=== PATIENT | male | born 1970 | race Caucasian/White ===

== ENCOUNTER 2017-10-17 04:22 | Inpatient (IN) | payer OTHER ==
[~2017-10-17] VITALS: Ht 182.9 cm; Wt 95.3 kg
--- NOTE | ~2017-10-17 | D ---
[facility] [place] [address] DISCHARGE SUMMARY Name: MARGARITA SOTELO Room #: 448-P [facility] IN M.R.#: [id number] Admission: 10/17/17 Attend Phys: Aleks Christine MD Discharge: 10/17/17 Date of : 66 Report #: [id number] THIS REPORT FOR: //name// CC: DANILO physician/PCP Aleks Christine DATE OF SERVICE: 10/17/2017 The patient left AMA on 10/17/2017 HISTORY OF PRESENT ILLNESS: The patient is 47-year-old man with history of polysubstance abuse, who was admitted to the hospital for acute pancreatitis, which is recurrent problem for him. Please refer to admission H and P for details. Before I made rounds this morning, I was notified that the patient left AMA last night. FINAL DIAGNOSIS: Acute pancreatitis, recurrent problem. <ELECTRONICALLY SIGNED> By: Aleks Christine MD 10/22/17 1906 1219 1228 Aleks Christine MD /nt
[2017-10-17 04:31] VITALS: BP 143/80
[2017-10-17 04:51] LABS: ABSOLUTE NEUTROPHILS 4.6 thou/uL (1.4-8.2); EOSINOPHILS 2.8 % (0.0-3.0); HEMATOCRIT 37.9 % (42.0-52.0); HEMOGLOBIN 13.3 gm/dL (14.0-18.0); LYMPHOCYTES 42.8 % (24.0-44.0); MCH 32.1 pg (26.0-34.0); MCHC 35.2 g/dL (28.0-37.0); MCV 91.1 fL (80.0-100.0); PLATELET COUNT 355 thou/uL (150-400); POLYS 42.4 % (36.0-66.0); RBC 4.16 mil/uL (4.50-6.00); RDW 14.1 % (10.5-14.5); WBC 10.8 thou/uL (4.0-11.0)
[2017-10-17 04:56] LABS: ANION GAP 13 mmol/L (7-16); BUN 16 mg/dL (7-18); CALCIUM 8.4 mg/dL (8.5-10.1); CHLORIDE 105 mmol/L (98-107); CO2 24 mmol/L (21-32); CREATININE 0.8 mg/dL (0.7-1.3); POTASSIUM 3.6 mmol/L (3.5-5.1); SODIUM 142 mmol/L (136-145)
[2017-10-17 05:03] LABS: ALBUMIN 3.8 g/dL (3.4-5.0); DIRECT BILIRUBIN < 0.1 mg/dL (<0.1-0.3); LIPASE 1013 U/L (73-393); MAGNESIUM 1.9 mg/dL (1.8-2.4); SGOT 75 U/L (15-37); SGPT 52 U/L (30-65); TOTAL BILIRUBIN 0.5 mg/dL (<0.1-1.0); TOTAL PROTEIN 7.5 g/dL (6.4-8.2)
[2017-10-17 05:08] LABS: GLUCOSE 97 mg/dL (74-106)
[2017-10-17 05:57] LABS: URINE BILIRUBIN NEGATIVE (Negative); URINE BLOOD NEGATIVE (Negative); URINE CLARITY CLEAR; URINE COLOR YELLOW; URINE GLUCOSE-RANDOM* NEGATIVE (Negative); URINE KETONES NEGATIVE (Negative); URINE LEUKOCYTES-REFLEX NEGATIVE (Negative); URINE NITRITE-REFLEX NEGATIVE (Negative); URINE PROTEIN (DIPSTICK) NEGATIVE (Negative); URINE UROBILINOGEN 0.2 E.U./dl (0.2-1.0)
[2017-10-17 06:05] LABS: AMP/METHAMP POSITIVE (Negative); BARBITURATES Negative (Negative); BENZODIAZEPINES Negative (Negative); COCAINE Negative (Negative); METHADONE Negative (Negative); OPIATES POSITIVE (Negative); PCP Negative (Negative)
[2017-10-17 07:45] VITALS: BP 135/76
[2017-10-17 08:53] VITALS: BP 126/79
[2017-10-17 16:07] VITALS: BP 129/76
== END 2017-10-17 19:04 | disposition left against medical advice (07) | DRG 440 ==
LOC: ER 04:22 → EROBS 06:10 → 4S 07:46
PROVIDERS: Emergency Medicine
DX: K85.90 Acute pancreatitis without necrosis or infection, unspecified (principal); F17.210 Nicotine dependence, cigarettes, uncomplicated; E11.9 Type 2 diabetes mellitus without complications; I10 Essential (primary) hypertension; R26.9 Unspecified abnormalities of gait and mobility; K52.9 Noninfective gastroenteritis and colitis, unspecified; F19.10 Other psychoactive substance abuse, uncomplicated; Z93.3 Colostomy status; Z85.038 Personal history of other malignant neoplasm of large intestine; Z90.49 Acquired absence of other specified parts of digestive tract; Z89.512 Acquired absence of left leg below knee; Z80.9 Family history of malignant neoplasm, unspecified; F11.10 Opioid abuse, uncomplicated; F15.10 Other stimulant abuse, uncomplicated; F12.10 Cannabis abuse, uncomplicated
CPT/HCPCS: 10195

== ENCOUNTER 2019-07-12 17:03 | Inpatient (IN) | payer OTHER ==
[~2019-07-12] VITALS: Ht 182.9 cm; Wt 78.0 kg
[2019-07-12 17:07] VITALS: BP 137/84
[2019-07-12 18:44] LABS: ABSOLUTE NEUTROPHILS 3.8 thou/uL (1.4-8.2); EOSINOPHILS 1.9 % (0.0-3.0); HEMATOCRIT 40.1 % (42.0-52.0); HEMOGLOBIN 13.8 gm/dL (14.0-18.0); LYMPHOCYTES 22.8 % (24.0-44.0); MCHC 34.3 g/dL (28.0-37.0); MONOCYTES 11.4 % (1.0-8.0); PLATELET COUNT 298 thou/uL (150-400); POLYS 62.9 % (36.0-66.0); RBC 4.17 mil/uL (4.50-6.00); RDW 12.7 % (10.5-14.5); WBC 6.1 thou/uL (4.0-11.0)
[2019-07-12 18:53] LABS: URINE BILIRUBIN NEGATIVE (Negative); URINE BLOOD NEGATIVE (Negative); URINE CLARITY CLEAR; URINE COLOR YELLOW; URINE GLUCOSE-RANDOM* 3+ (Negative); URINE KETONES NEGATIVE (Negative); URINE LEUKOCYTES-REFLEX NEGATIVE (Negative); URINE NITRITE-REFLEX NEGATIVE (Negative); URINE PROTEIN (DIPSTICK) NEGATIVE (Negative); URINE UROBILINOGEN 0.2 E.U./dl (0.2-1.0)
[2019-07-12 18:59] LABS: ALBUMIN 3.3 g/dL (3.4-5.0); CALCIUM 8.9 mg/dL (8.5-10.1); POTASSIUM 4.4 mmol/L (3.5-5.1); TOTAL BILIRUBIN 0.4 mg/dL (<0.1-1.0); TOTAL PROTEIN 7.6 g/dL (6.4-8.2)
[2019-07-12 19:14] LABS: AMP/METHAMP Negative (Negative); BARBITURATES Negative (Negative); BENZODIAZEPINES Negative (Negative); COCAINE Negative (Negative); METHADONE Negative (Negative); OPIATES Negative (Negative); PCP Negative (Negative)
[2019-07-12] MEDS ORDERED: METFORMIN HCL500 M3 PO (22:06)
[2019-07-12] MEDS ORDERED: GLIPIZIDE 10 MG10 MG PO (22:07)
[2019-07-12 22:08] VITALS: BP 123/73
--- NOTE | 2019-07-12 22:10 | NUR ---
PT HAD AN ALLERGIC REACTION TO THE CT CONTRAST, GIVEN EPI, SOLU-MEDROL, PEPCID, AND 1L OF FLUID.
--- NOTE | 2019-07-12 22:11 | NUR ---
CALLED MICHAEL, ROOMMATE, AT PT'S REQUEST
[2019-07-12 23:19] VITALS: BP 121/79
--- NOTE | 2019-07-13 00:58 | NUR ---
PT ARRIVED ON UNIT FROM ED AT 2250. ADMITTED WITH HYPERGLYCEMIA AND ABDOMINAL PAIN. COMES FROM HOME. VOIDING PER URINAL. LEFT FOOT AMPUTEE--AMBULATES INDEPENDENTLY WITH CRUTCHES. MORPHINE PROVIDING PAIN RELIEF. DENIES NAUSEA. RESTING COMFORTABLY. NO NEEDS VOICED. CALL LIGHT WITHIN REACH. WILL CONTINUE TO PROVIDE FREQUENT OBSERVATION.
[2019-07-13 03:55] VITALS: BP 112/67
[2019-07-13 04:49] LABS: MCH 32.6 pg (26.0-34.0); MCHC 34.1 g/dL (28.0-37.0); MCV 95.5 fL (80.0-100.0); RBC 4.61 mil/uL (4.50-6.00); RDW 12.5 % (10.5-14.5)
[2019-07-13 05:09] LABS: CALCIUM 9.4 mg/dL (8.5-10.1); CREATININE 0.8 mg/dL (0.7-1.3); POTASSIUM 4.4 mmol/L (3.5-5.1)
[2019-07-13 08:15] VITALS: BP 110/72
[2019-07-13 11:31] VITALS: BP 118/67
[2019-07-13 16:00] VITALS: BP 112/76
--- NOTE | 2019-07-13 16:28 | NUR ---
RECEIVED PT'S CARE AROUND 0730; PT. ON BED; RESTING WITH EYES CLOSED; CHEST RISING; DURING ASSESSMENT PT. AOX4; C/O PAIN OVER R. SIDE ABDOMEN; 04/12; PRN PAIN MEDICATION GIVEN WITH AM MEDICATIONS; EDUCATED ABOUT CALLING BEFORE STANDING UP; ST. UNDERSTANDING; REFUSED BED ALARM; COMMODE AT THE BED SIDE DUE TO AM MEDICATION GIVEN; INSULIN REPLACED; THROUGH THE DAY MONITOR SHOWS SR; NO BM UNTIL 1633; PT. ST. ABLE TO PASS FLATUS; ASSESSMENT CHARGED; FOLLOWING POC; WILL PASS ON REPORT;
[2019-07-13 20:13] VITALS: BP 108/81
[2019-07-14 04:07] LABS: GLYCOHEMOGLOBIN (HGB A1C) 12.8 % (4.8-5.6)
--- NOTE | 2019-07-14 04:46 | NUR ---
ASSUMED PT CARE AROUND 1900. A&OX4. C/O RUQ ABDOMINAL PAIN. NO C/O N/V. MORPHINE GIVEN FOR PAIN, WITH TEMPORARILY RELIEF. PT SLEPT MOST OF THE NIGHT. RESP EVEN AND UNLABORED. IVF INFUSING ORDERED. GOOD URINE OUTPUT VIA URINAL. PT REFUSES BED ALARM. PT UNDERSTANDS HE SHOULD NOT GET OUT OF BED WITHOUT ASSISTANCE. VSS. NPO SINCE MIDNIGHT. PROGRESSING SLOWLY TOWARD POC GOALS. WILL CONTINUE TO MONITOR FURTHER.
[2019-07-14 04:58] LABS: HEMATOCRIT 36.5 % (42.0-52.0); MCH 32.2 pg (26.0-34.0); MCHC 33.1 g/dL (28.0-37.0); MCV 97.1 fL (80.0-100.0); RBC 3.76 mil/uL (4.50-6.00); RDW 12.6 % (10.5-14.5); WBC 18.4 thou/uL (4.0-11.0)
[2019-07-14 05:00] VITALS: BP 110/73
[2019-07-14 05:01] LABS: HEMOGLOBIN 12.1 gm/dL (14.0-18.0)
[2019-07-14 05:13] LABS: ALBUMIN 2.7 g/dL (3.4-5.0); CALCIUM 8.7 mg/dL (8.5-10.1); CREATININE 0.9 mg/dL (0.7-1.3); POTASSIUM 4.4 mmol/L (3.5-5.1); TOTAL BILIRUBIN 0.4 mg/dL (<0.1-1.0); TOTAL PROTEIN 6.3 g/dL (6.4-8.2)
[2019-07-14 07:48] VITALS: BP 112/68
[2019-07-14 12:58] VITALS: BP 118/66
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
[2019-07-14 16:00] VITALS: BP 120/68
--- NOTE | 2019-07-14 17:11 | NUR ---
pt is A&OX3, PT has done EGD today, resluts show a diffused gastritis, no ulcer, pt starts eat lunch, pt is tolerate, pt does not have n/v , pt's bs has and abd pain have improved, pt's vs are stable at this time.
[2019-07-14 20:18] VITALS: BP 134/74
[2019-07-15 03:51] VITALS: BP 141/76
--- NOTE | 2019-07-15 05:35 | NUR ---
ASSUMED CARE AT 1900. PT INITIALLY VERY FRUSTRATED, STATED HE WANTED TO LEAVE AMA BECAUSE HE WASN'T GETTING TO EAT ENOUGHT; BLOOD SUGAR CHECK WAS 110, GAVE PT A TURKEY SANDWICH BOX. PT GRADUALLY CALMED DOWN, APOLOGIZED FOR OVER-REACTING. RECHECK OF BLOOD SUGAR AT 2129 WAS 174, TREATED WITH 3 UNITS LISPRO WELL GIVING ANOTHER SNACK OF ADILENE CRACKERS/PEANUT BUTTER. PT ASKED ABOUT WHAT REGIMINE HE WOULD GO HOME ON, SPOKE ABOUT LIKELY OPTIONS BUT EXPLAINED ENDOCRINOLOGY WOULD BE MAKING THE FINAL DECISIONS. PT ASKED TO USE BEDSIDE COMMODE TO HAVE BM; WANTED TO GET UP ON HIS OWN, BUT EDUCATED PT ABOUT FALL RISKS AND HE AGREED TO LET STAFF ASSIST HIM. STOOL SAMPLE SENT TO LAB. IVF INFUSING OVERNIGHT; PT HAD LARGE AMOUNT OF URINE OUTPUT. NO OTHER CONCERNS, WILL CONTINUE TO MONITOR.
[2019-07-15 08:08] VITALS: BP 142/73
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
[2019-07-15 09:07] LABS: HAV IgM AB (ANTI-HAV IgM) Negative (Negative); HEPATITIS B SURFACE AG Negative (Negative); HEPATITIS C VIRUS AB >11.0 (0.0-0.9)
[2019-07-15 10:32] LABS: ABSOLUTE NEUTROPHILS 17.3 thou/uL (1.4-8.2); BASOPHILS 0.1 % (0.0-2.0); HEMATOCRIT 38.8 % (42.0-52.0); HEMOGLOBIN 12.5 gm/dL (14.0-18.0); LYMPHOCYTES 4.6 % (24.0-44.0); MCH 31.8 pg (26.0-34.0); MCHC 32.3 g/dL (28.0-37.0); MCV 98.4 fL (80.0-100.0); MONOCYTES 1.8 % (1.0-8.0); PLATELET COUNT 316 thou/uL (150-400); POLYS 93.5 % (36.0-66.0); RBC 3.95 mil/uL (4.50-6.00); RDW 12.9 % (10.5-14.5); WBC 18.5 thou/uL (4.0-11.0)
[2019-07-15 10:47] LABS: ALBUMIN 2.8 g/dL (3.4-5.0); CALCIUM 8.6 mg/dL (8.5-10.1); POTASSIUM 4.1 mmol/L (3.5-5.1); TOTAL BILIRUBIN 0.4 mg/dL (<0.1-1.0); TOTAL PROTEIN 6.6 g/dL (6.4-8.2)
[2019-07-15 11:17] VITALS: BP 137/67
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
--- NOTE | 2019-07-15 14:25 | NUR ---
SW reviewed chart and spoke with nursing and attending physician. Pt is progressing towards goals for discharge. Discharge home is anticipated for tomorrow. [employer] met with pt to assist with completion of assistance forms for DM meds/supplies. [employer] to meet with pt today to complete Medicaid application. SAUL contacted [employer] and [employer] to find out cost of knee scooter. [employer] does not carry knee scooters. Awaiting input from Dev. SAUL is following to assist as needed with discharge planning.
[2019-07-15 15:57] VITALS: BP 130/71
--- NOTE | 2019-07-15 17:06 | PATH ---
[facility] [address] [place] [address] PATHOLOGY RPT PROCEDURE Name: MARGARITA CARRILLO Room #: 362-P ADM IN M.R.#: [id number] Admission: 07/12/19 Date of : 66 Discharge: Report #: [id number] Path Case #: [id number] [facility] Accession Number: [id number] . 01 Material submitted: . stomach - BX GASTRITIS . 01 Clinical history: . Pre-OP DX: Nausea, vomiting, abdominal pain Post-OP DX: Gastritis . 02 Diagnosis: Gastric mucosa, gastritis, rule out H. pylori, endoscopic biopsy: - Moderate reactive gastropathy. - Negative for intestinal metaplasia or atrophy. - Negative for Helicobacter pylori (properly controlled immunohistochemical stain performed). (IUV:pit; 07/15/2019) QTP 07/15/2019 1153 Local . 02 Electronically signed: . Sofie Womack MD, Pathologist NPI- [id number] . 01 Gross description: . Received in formalin labeled "Margarita Carrillo, BX gastritis, rule out H. pylori," are 3 segments of perkins soft tissue measuring 1.1 x 1.0 x 0.3 cm in aggregate dimensions and ranging from 0.4 to 0.5 cm in maximum dimension. The specimen is submitted entirely in cassette A1. (TSD; 07/14/2019) TOB/TOB 07/14/2019 2208 Local . 02 Pathologist provided ICD-10: K31.9 . 02 CPT . 410213, [id number] Specimen Comment: A courtesy copy of this report has been sent to [phone] Specimen Comment: [phone] Specimen Comment: Report sent to / DR FUNEZ Performed at: 01 [facility] [address] [id number] MD Alhaji Mccallum MD Phone: [phone] Performed at: 02 [facility] [address] [place] [address] PATHOLOGY RPT PROCEDURE Name: MARGARITA CARRILLO Room #: 362-P ADM IN M.R.#: [id number] Admission: 07/12/19 Date of : 66 Discharge: Report #: [id number] Path Case #: [id number] [address] [place] [id number] MD Sofie Womack MD Phone: [phone]
--- NOTE | 2019-07-15 18:07 | NUR ---
ASSUMED CARE OF PT AT APPROX 0700. PT IS ALERT AND ORIENTED X4. MONITORED ON TELE AND ABLE TO MAINTAIN 02 SAT >90 ON RA. COMPLAINS OF ABD PAIN THAT IS PARTIALLY RESOLVED WITH PRN PAIN MEDICATIONS. ASSESSMENT CHARTED. EDUCATED PT ON USING INSULIN AND ALLOWED HIM TO STICK HIMSELF. ALSO SHOWED HIM A BOTTLE AND TOLD HIM HE KEEPS RECIEVING HE SHOULD BECOME MORE AND MORE INTERACTIVE WITH INSULIN ADMINISTRATION SO THAT HE IS FAMILIAR AT [facility]. PT WAS VERY THANKFUL AND IN AGREEMENT. PT DENIES ANY FURTHER CONCERNS AT THIS TIME. NAD NOTED DURING SHIFT. WILL CONTINUE TO MONITOR.
[2019-07-15 19:02] VITALS: BP 133/73
[2019-07-16 03:54] VITALS: BP 137/71
--- NOTE | 2019-07-16 04:09 | NUR ---
Pt. slept well during the night. Medicated for pain with some relief. Refused bed alarm and gets up using crutches. Calls appropriately if he needs assistance. Making progress towards care plan goals.
[2019-07-16 07:55] VITALS: BP 157/74
[2019-07-16 11:48] VITALS: BP 135/72
[2019-07-16 12:20] VITALS: BP 135/72
[2019-07-16] MEDS ORDERED: HYOSCYAMINE0.125 M1 SUBLING (12:23)
[2019-07-16] MEDS ORDERED: MIRALAX17 GM PO (12:23)
[2019-07-16] MEDS ORDERED: LANTUS100 UNIT/M SUBQ (12:26)
[2019-07-16] MEDS ORDERED: CARAFATE 1 GM TA1 G1 PO (12:26)
[2019-07-16] MEDS ORDERED: PROTONIX40 M1 PO (12:26)
[2019-07-16] MEDS ORDERED: HUMALOG100 UNIT/1 SUBQ (12:27)
[2019-07-16] MEDS ORDERED: NORCO 5-325 TA1 EAC1 PO (12:30)
--- NOTE | 2019-07-16 16:26 | NUR ---
DISCHARGE NOTE: SAUL reviewed chart and spoke with nursing and attending physician. Pt is medically stable for discharge home today. [employer] oconnell met with pt to assist with prescription assistance for diabetes meds/supplies. Pt completed forms. Case mgmt to vouch for meds. Case Mgmt Director approved cost of meds. Pt will need to rock picker one med tomorrow at the Outpatient pharmacy. SW met with pt at bedside to provide update. Pt was very unhappy that all meds are not available today to rock picker. SW explained that it had to be ordered. RALF oconnell and attending physician discussed pt's insulin dose for today. SW updated nursing. Pt has transportation home. SW is following to assist as needed with discharge planning.
[2019-07-16 16:41] VITALS: BP 135/72
--- NOTE | 2019-07-16 16:55 | NUR ---
ASSUMED CARE OF AT 0700. PT ALERT AND ORIENTED IN NO ACUTE DISTRESS. OCCASIONAL ABDOMINAL PAIN. FRUSTRATED THAT NOVALIN 70/30 NOT AVAILABLE IN OUTPAWTIENT PHARM UNTIL TOMORROW, BUT IS AGREEABLE FOR D/C AND TO PICK IT UP TOMORROW MORNING. PHYSICIAN AND RN DISCUSSED WITH PATIENT THAT HE IS COVERED WITH LONG ACTING INSULIN ADMINISTERED TODAY. ALL OTHER MEDS AVAILABLE IN OUTPATIENT PHARM. BLOOD SUGAR BEFORE D/C IS 94. WAITING ON TRANSPORT.
== END 2019-07-16 17:13 | disposition home or self-care (01) | DRG 392 ==
LOC: ER 17:03 → EROBS 21:56 → 3W 21:56 → ENTRNSPT 07-16 16:53 → 3W 07-16 17:13
PROVIDERS: Internal Medicine; Internal Medicine Gastroenterology; Nurse Practitioner Family; Physician Assistant; ADMIT Hospitalist
PROC: 0DB68ZX Excision of Stomach, Via Natural or Artificial Opening Endoscopic, Diagnostic (ICD-10-PCS; principal; 2019-07-14)
DX: K29.70 Gastritis, unspecified, without bleeding (principal); R57.9 Shock, unspecified; E87.1 Hypo-osmolality and hyponatremia; E46 Unspecified protein-calorie malnutrition; T50.8X5A Adverse effect of diagnostic agents, initial encounter; E11.65 Type 2 diabetes mellitus with hyperglycemia; K21.9 Gastro-esophageal reflux disease without esophagitis; F17.210 Nicotine dependence, cigarettes, uncomplicated; K59.00 Constipation, unspecified; F19.10 Other psychoactive substance abuse, uncomplicated; Z90.49 Acquired absence of other specified parts of digestive tract; Z85.038 Personal history of other malignant neoplasm of large intestine; Z79.899 Other long term (current) drug therapy; Z79.84 Long term (current) use of oral hypoglycemic drugs; Z89.432 Acquired absence of left foot; Y92.89 Other specified places as the place of occurrence of the external cause; Z90.411 Acquired partial absence of pancreas; Z80.8 Family history of malignant neoplasm of other organs or systems; Z91.041 Radiographic dye allergy status; Z90.81 Acquired absence of spleen; Z80.0 Family history of malignant neoplasm of digestive organs; Z68.23 Body mass index [BMI] 23.0-23.9, adult
CPT/HCPCS: 10879; 62110; 62900; 70005

== ENCOUNTER 2019-10-20 08:28 | Inpatient (IN) | payer OTHER ==
[~2019-10-20] VITALS: Ht 180.3 cm; Wt 83.9 kg
[~2019-10-20 08:28] MED LIST: CARAFATE 1 GM TA1 G1 PO; GLIPIZIDE 10 MG10 MG PO; HUMALOG100 UNIT/1 SUBQ; HYOSCYAMINE0.125 M1 SUBLING; LANTUS100 UNIT/M SUBQ; METFORMIN HCL500 M3 PO; MIRALAX17 GM PO; NORCO 5-325 TA1 EAC1 PO; PROTONIX40 M1 PO
[2019-10-20 08:34] VITALS: BP 130/90
[2019-10-20 09:17] LABS: HEMATOCRIT 38.7 % (42.0-52.0); HEMOGLOBIN 13.3 gm/dL (14.0-18.0); MCH 32.7 pg (26.0-34.0); MCHC 34.4 g/dL (28.0-37.0); PLATELET COUNT 415 thou/uL (150-400); RBC 4.08 mil/uL (4.50-6.00); RDW 12.5 % (10.5-14.5); WBC 7.3 thou/uL (4.0-11.0)
[2019-10-20 09:22] LABS: CALCIUM 8.8 mg/dL (8.5-10.1); CREATININE 0.9 mg/dL (0.7-1.3)
[2019-10-20 09:29] LABS: ALBUMIN 3.5 g/dL (3.4-5.0); TOTAL BILIRUBIN 0.4 mg/dL (<0.1-1.0); TOTAL PROTEIN 8.1 g/dL (6.4-8.2)
[2019-10-20 10:00] LABS: ABSOLUTE NEUTROPHILS 3.6 thou/uL (1.4-8.2); PLATELET ESTIMATE NORMAL
[2019-10-20 12:55] VITALS: BP 143/82
[2019-10-20 13:15] VITALS: BP 117/54
[2019-10-20 19:07] VITALS: BP 120/89
--- NOTE | 2019-10-20 20:36 | NUR ---
PATIENT ARRIVED TO UNIT ESCORTED BY ED STAFF. PATIENT NG TUBE IN PLACE, CONNECTED TO LIS. PATIENT REPORTS PAIN MANAGED WITH MEDICATION ORDERED. UP WITH STANDBY ASSIST USING CRUTCHES. CONSENTS SIGNED, ADMISSION COMPLETE. FALL PRECAUTIONS IN PLACE.
--- NOTE | 2019-10-21 04:45 | NUR ---
Pt. rested quietly at intervals during the night when checked on during frequent rounds. He c/o chronic abdominal pain and ivp pain meds given (see emar) with some relief noted. No c/o nausea. Ngt patent to left nare with no output. Bed alarm is on.
[2019-10-21 07:00] VITALS: BP 112/60
[2019-10-21 07:32] LABS: HEMATOCRIT 37.9 % (42.0-52.0); HEMOGLOBIN 12.9 gm/dL (14.0-18.0); MCH 32.9 pg (26.0-34.0); MCV 96.6 fL (80.0-100.0); PLATELET COUNT 368 thou/uL (150-400); RBC 3.92 mil/uL (4.50-6.00); RDW 12.4 % (10.5-14.5); WBC 6.5 thou/uL (4.0-11.0)
[2019-10-21 07:42] LABS: CALCIUM 8.1 mg/dL (8.5-10.1); CREATININE 0.8 mg/dL (0.7-1.3); MAGNESIUM 1.8 mg/dL (1.8-2.4)
[2019-10-21 08:58] LABS: ABSOLUTE NEUTROPHILS 2.9 thou/uL (1.4-8.2)
[2019-10-21 09:00] LABS: ANISOCYTOSIS SLIGHT
[2019-10-21 14:42] VITALS: BP 121/63
--- NOTE | 2019-10-21 16:28 | NUR ---
Assumed pt care this am, pt was NPO and NGT on the left nare patent and in place. 2 L of O2 via nc. Pt was taken down for an EGD this am, NG tube removed as per post op. VS stable, pain is managed with medications, diets is currently cleaqrs and to advance as tolerated. Diet and medications are tolerated. POC followed.
--- NOTE | 2019-10-21 18:14 | NUR ---
met with patient who admits with N/V. Patient lives in home with roomates. He uses bus for transportation. Prev admission at [facility] assisted with precription assistance program for diabetic medication. Patient reports that has worked out well. He reports he has used crutches for such a long time he has pain in arm pits and reports he really needs a knee scooter if casemgt can assist. Will inquire with DME company. Plan home independently. Patient has active medicaid for prescritions. He does not have PCP. Gave [facility] and encouraged patient to call medicaid for PCP in area and on bus line.
[2019-10-21 19:17] VITALS: BP 124/68
--- NOTE | 2019-10-22 04:40 | NUR ---
ASSUMED PT CARE AROUND 1914. AXOX3. INDEPENDENT WITH ADLS. PERSISENT PAIN TO ABD. MEDICATED PER MD ORDER. NO S/S ACUTE DISTRESS NOTED OR REPORTED AT THIS TIME. WILL CONT TO MONITOR FOR ANY CHANGES IN CONDITION.
[2019-10-22 07:00] VITALS: BP 113/55
[2019-10-22 13:21] LABS: DIRECT BILIRUBIN 0.1 mg/dL (<0.1-0.2); TOTAL BILIRUBIN 0.6 mg/dL (<0.1-1.0); TOTAL PROTEIN 6.7 g/dL (6.4-8.2)
[2019-10-22] MEDS ORDERED: PERCOCET 5-3251 EACH PO (14:08)
[2019-10-22 15:10] VITALS: BP 113/55
[2019-10-22 16:02] VITALS: BP 113/55
--- NOTE | 2019-10-22 16:03 | NUR ---
CARE TEAM INDICATED THAT PT IS MEDICALLY STABLE TO DC HOME TO SELF CARE THIS DAY. CM CALLED MEDICAID AND DETERMINED THAT PRIOR AUTH WASN'T NEEDED FOR A KNEE SCOOTER. CM SEND ORDER TO [employer] THEY ARE ABLE TO FILL ORDER AND DELIVER KNEE SCOOTER TO HOSPITAL FOR DISCHARGE TODAY. PT BROUGHT MEDS TO OUTPATIENT PHARM. NO OTHER CM INTERVENTION INDICATED. CASE CLOSED.
--- NOTE | 2019-10-22 16:20 | NUR ---
Assumed pt care at 7am.Pt in bed resting and watching tv.Assessment completed. vss.Pt c/o abdominal pain rated 8/10.Pain shot given as ordered with relief. Dr Thurston and Alejandrina here.dc order noted.Dc summary compiled and reviewed with pt.Rx given with dc summary copy.Pt will be dc home as soon as scooter deliver to him today.Pt in room waiting. Will continue to monitor.
--- NOTE | 2019-10-23 17:07 | PATH ---
[facility] [address] [address] PATHOLOGY RPT PROCEDURE Name: MARGARITA CARRILLO Room #: 449-I DIS IN M.R.#: [id number] Admission: 10/20/19 Date of : 66 Discharge: 10/22/19 Report #: [id number] Path Case #: [id number] [facility] Accession Number: [id number] . 01 Material submitted: . stomach - BIOPSY OF GASTRITIS R/O H. PYLORI . 01 Clinical history: . N/V, gastric opening block, rule out H. pylori . 02 Diagnosis: Gastric mucosa, gastritis rule out H. pylori, endoscopic biopsy: - Moderate reactive gastropathy. - Negative for intestinal metaplasia or atrophy. - Negative for Helicobacter pylori (properly controlled immunohistochemical stain performed). (IUV/db; 10/23/2019) LBQ 10/23/2019 1413 Local . 02 Electronically signed: . Sofie U Vadlamani, MD, Pathologist NPI- [id number] . 01 Gross description: . The specimen is received in formalin, labeled "Margarita Carrillo, BX of gastritis" and consists of 4 fragments of pink-perkins tissue measuring 1.2 x 0.7 x 0.2 cm in aggregate which are entirely submitted in A1. (SDY; 10/22/2019) SYU/SYU 10/22/2019 1413 Local . 02 Pathologist provided ICD-10: K31.9 . 02 CPT . 549767, [id number] Specimen Comment: A courtesy copy of this report has been sent to [phone] Specimen Comment: Report sent to Performed at: [address] [id number] MD Alhaji Mccallum MD Phone: [phone] Performed at: [address] [id number] MD Sofie Womack MD Phone: [phone]
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
== END 2019-10-22 17:22 | disposition home or self-care (01) | DRG 392 ==
LOC: ER 08:28 → EROBS 11:04 → 4W 11:04 → ENTRNSPT 10-22 13:41 → EDTRNSPT 10-22 13:44 → 4W 10-22 17:22
PROVIDERS: Emergency Medicine; Nurse Practitioner; ADMIT Hospitalist
PROC: 0DB68ZX Excision of Stomach, Via Natural or Artificial Opening Endoscopic, Diagnostic (ICD-10-PCS; principal; 2019-10-20)
DX: K29.70 Gastritis, unspecified, without bleeding (principal); K31.1 Adult hypertrophic pyloric stenosis; K56.609 Unspecified intestinal obstruction, unspecified as to partial versus complete obstruction; E11.9 Type 2 diabetes mellitus without complications; F17.220 Nicotine dependence, chewing tobacco, uncomplicated; F12.90 Cannabis use, unspecified, uncomplicated; F19.10 Other psychoactive substance abuse, uncomplicated; Z89.619 Acquired absence of unspecified leg above knee; Z85.038 Personal history of other malignant neoplasm of large intestine; Z90.3 Acquired absence of stomach [part of]; Z90.81 Acquired absence of spleen; Z90.49 Acquired absence of other specified parts of digestive tract; Z91.041 Radiographic dye allergy status; Z80.0 Family history of malignant neoplasm of digestive organs
CPT/HCPCS: 10040; 62110; 62900; 70005

== ENCOUNTER 2020-02-22 08:19 | Inpatient (IN) | payer OTHER ==
[~2020-02-22] VITALS: Ht 182.9 cm; Wt 93.9 kg
[~2020-02-22 08:19] MED LIST changes: +PERCOCET 5-3251 EACH PO
[2020-02-22 08:24] VITALS: BP 118/78
[2020-02-22] MEDS ORDERED: HYOSCYAMINE0.125 MG SUBLING (08:56)
[2020-02-22 09:53] LABS: HEMATOCRIT 41.9 % (42.0-52.0); HEMOGLOBIN 15.1 gm/dL (14.0-18.0); MCH 34.2 pg (26.0-34.0); MCHC 36.1 g/dL (28.0-37.0); MCV 94.6 fL (80.0-100.0); PLATELET COUNT 259 thou/uL (150-400); RBC 4.43 mil/uL (4.50-6.00); RDW 13.1 % (10.5-14.5); WBC 6.4 thou/uL (4.0-11.0)
[2020-02-22 10:06] LABS: CALCIUM 8.5 mg/dL (8.5-10.1); CREATININE 0.9 mg/dL (0.7-1.3); POTASSIUM 4.4 mmol/L (3.5-5.1)
[2020-02-22 10:08] LABS: ALBUMIN 3.1 g/dL (3.4-5.0); TOTAL BILIRUBIN 0.3 mg/dL (0.2-1.0); TOTAL PROTEIN 6.9 g/dL (6.4-8.2)
[2020-02-22 11:28] LABS: ABSOLUTE NEUTROPHILS 2.9 thou/uL (1.4-8.2); ATYPICAL LYMPHS 3 %
[2020-02-22 14:20] VITALS: BP 137/80
[2020-02-22 15:03] VITALS: BP 121/63
[2020-02-22 16:36] VITALS: BP 129/72
--- NOTE | 2020-02-22 16:41 | NUR ---
PATIENT ADMIT TO UNIT AT 1520 FROM ER, A/O X4. ABD PAIN WITH NG TUBE TO LLS. NO ANY OUTPUT NOTED. PAIN MED GIVEN. PATIENT HAS LEFT BKA. USE SCOOTER AMBULATED. NO N/V. VSS. WILL KEEP MONITOR.
[2020-02-22 19:15] VITALS: BP 149/83
--- NOTE | 2020-02-23 04:20 | NUR ---
PT TRANSFERRED FROM 4W AT 2030. VOIDING PER URINAL. MORPHINE PROVIDING PAIN RELIEF. DENIES NAUSEA. RESTING COMFORTABLY. CALL LIGHT WITHIN REACH. FREQUENT OBSERVATION.
[2020-02-23 05:09] LABS: HEMATOCRIT 40.4 % (42.0-52.0); HEMOGLOBIN 14.4 gm/dL (14.0-18.0); MCH 34.3 pg (26.0-34.0); MCHC 35.7 g/dL (28.0-37.0); RBC 4.21 mil/uL (4.50-6.00); RDW 13.1 % (10.5-14.5); WBC 6.1 thou/uL (4.0-11.0)
[2020-02-23 05:19] LABS: CREATININE 0.9 mg/dL (0.7-1.3); POTASSIUM 3.7 mmol/L (3.5-5.1)
--- NOTE | 2020-02-23 13:09 | NUR ---
Assumed care of pt at 0700. NG tube removed per dr order and soft diet started. Denies n/v. IVF infusing. Pt states he feels better. Will continue to monitor for n/v. Abd pain controlled. Call light within reach.
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
[2020-02-23 16:29] VITALS: BP 110/71
[2020-02-23 19:16] VITALS: BP 122/72
--- NOTE | 2020-02-24 02:51 | NUR ---
PT AOX4. PT REPORTS PAIN IN ABDOMEN AND AROUND SIDES. PT REPORTS PAIN IS EXACERBATED WITH TOUCH, ACTIVITY, AND MOVEMENT. PT RECEIVING PRN IV MORPHINE Q4HR. PT CONTINUES TO USE KNEE SCOOTER FOR AMBULATION IN ROOM AND TO BATHROOM. PT ENCOURAGED TO NOTIFY STAFF PRIOR TO GETTING OUT OF BED IN ORDER TO PREVENT FALLS AND PROMOTE PT SAFETY. PT AMBULATES WITH STANDBY ASSIST, USING RESTROOM AND URINAL. PT TOLERATING PO INTAKE OF SOFT FIBER RESTRICTED DIET WITHOUT ISSUE. FREQUENT REPOSITIONING ENCOURAGED, PT INDEPENDENT WITH REPOSITIONING WHILE IN BED. PT ENCOURAGED TO NOTIFY STAFF FOR ALL NEEDS. CALL LIGHT WITHIN REACH, BED IN LOWEST POSITION, BED ALARM ON. WILL CONTINUE TO MONITOR.
[2020-02-24 08:29] VITALS: BP 131/66
[2020-02-24] MEDS ORDERED: PERCOCET 5-3251 EACH PO (14:01)
[2020-02-24] MEDS ORDERED: REGLAN 5 MG TAB5 MG PO (14:02)
--- NOTE | 2020-02-24 14:53 | NUR ---
Assumed care of pt at 0700. Pt a&ox4. C/o pain in abdomen. Controlled with prn pain meds. Tolerating soft diet well. Refuses bed/chair alarm. Will discharge to home.
[2020-02-24 14:54] VITALS: BP 131/66
--- NOTE | 2020-02-24 14:59 | NUR ---
DISCHARGE NOTE: SW reviewed chart and spoke with nursing and attending physician. Pt is medically stable for discharge home today. Awaiting finalized discharge orders/summary at this time. Pt has crutches at bedside that was delivered by [employer] liaison. Cab voucher on pt's chart for when pt is ready for discharge. No additional SW needs identified at this time, but is available to assist should needs arise.
== END 2020-02-24 15:24 | disposition home or self-care (01) | DRG 382 ==
LOC: ER 08:19 → EROBS 14:12 → 4W 15:03 → 4S 19:51
PROVIDERS: Emergency Medicine; ADMIT Hospitalist; ATTEND Hospitalist
DX: K31.1 Adult hypertrophic pyloric stenosis (principal); F17.220 Nicotine dependence, chewing tobacco, uncomplicated; F12.90 Cannabis use, unspecified, uncomplicated; E11.9 Type 2 diabetes mellitus without complications; Z85.038 Personal history of other malignant neoplasm of large intestine; Z89.432 Acquired absence of left foot; Z90.81 Acquired absence of spleen; Z90.3 Acquired absence of stomach [part of]; Z90.49 Acquired absence of other specified parts of digestive tract; Z91.041 Radiographic dye allergy status; Z79.4 Long term (current) use of insulin
CPT/HCPCS: 10102

== ENCOUNTER 2020-05-25 11:37 | Inpatient (IN) | payer OTHER ==
[~2020-05-25] VITALS: Ht 182.9 cm; Wt 84.8 kg
[~2020-05-25 11:37] MED LIST changes: +HYOSCYAMINE0.125 MG SUBLING; +REGLAN 5 MG TAB5 MG PO
[2020-05-25 11:38] VITALS: BP 148/80
[2020-05-25 12:55] LABS: HEMATOCRIT 39.7 % (42.0-52.0); HEMOGLOBIN 13.5 gm/dL (14.0-18.0); MCH 33.3 pg (26.0-34.0); MCV 97.8 fL (80.0-100.0); RBC 4.06 mil/uL (4.50-6.00); RDW 12.1 % (10.5-14.5); WBC 5.7 thou/uL (4.0-11.0)
[2020-05-25 13:06] LABS: ALBUMIN 3.1 g/dL (3.4-5.0); CALCIUM 8.6 mg/dL (8.5-10.1); CREATININE 1.1 mg/dL (0.7-1.3); POTASSIUM 4.4 mmol/L (3.5-5.1); TOTAL BILIRUBIN 0.5 mg/dL (0.2-1.0); TOTAL PROTEIN 7.4 g/dL (6.4-8.2)
[2020-05-25 15:40] VITALS: BP 128/70
[2020-05-25 17:10] LABS: MAGNESIUM 1.7 mg/dL (1.8-2.4)
[2020-05-25 20:10] VITALS: BP 116/73
--- NOTE | 2020-05-25 22:15 | NUR ---
PATIENT WAS A NEW ADMISSION TO THE UNIT THIS SHIFT. HE ARRIVED VIA CART FROM THE ER AND WAS ABLE TO PULL SELF OVER TO BED WITH ASSISTANCE INCIDENT FREE. PATIENT IS ALERT AND ORIENTED AND ABLE TO PARTICIPATE FULLY IN ADMISSION. CHIEF COMPLAINTS ARE PAIN AND NAUSEA. NURSE TO COMPLETE ADMISSION AND INITIATE PLAN OF CARE.
[2020-05-25 23:50] VITALS: BP 110/66
--- NOTE | 2020-05-26 02:22 | NUR ---
PATIENT IS NOT COOPERATIVE WITH NURSING STAFF OVER PATIENTS HIGH FALL RISK STATUS. PATIENT WAS INITIALLY AGREEABLE TO USING HELP FROM STAFF WHEN ADMITTED TO THE UNIT. PATIENT BECAME VERBALLY ABUSIVE, THREW URINAL ACROSS ROOM, AND THREATENED TO LEAVE HOSPITAL AMA IF HE "HAS TO PEE WITH SOMEONE OVER ME" WHEN OFFERED HELP FROM THIS NURSE. PATIENT IS STILL CONSIDERED A HIGH FALL RISK.
--- NOTE | 2020-05-26 05:35 | NUR ---
PATIENT TRANSFERRED FROM ED TO UNIT; Q2H BLOOD GLUCOSE CHECKS X6 TRENDED DOWN THEN BACK UP AND ONE TIME SS OF INSULIN LISPRO ADMINISTERED; PATIENT C/O OF PAIN WERE MANAGED WITH MEDICATION X1; PATIENT REFUSED MEDICATION TO MANAGE LARGE IMPACTION SEEN ON IMAGING; PATIENT REFUSED BED ALARM OR ASSIST DURING TOILETING SO ALARM TURNED OFF AND PATIENT EDUCATED ON FALL RISKS; PATIENT IS A DAILY SMOKER/REFUSED NICOTINE PATCH; CONTINUE TO MONITOR AND ASSESS BG FREQUENTLY.
[2020-05-26 05:38] VITALS: BP 119/67
[2020-05-26 08:19] VITALS: BP 126/66
[2020-05-26 09:14] LABS: CREATININE 0.8 mg/dL (0.7-1.3); POTASSIUM 3.7 mmol/L (3.5-5.1)
--- NOTE | 2020-05-26 09:35 | NUR ---
Met with patient who is sleeping, never opened eyes. He keeps covers partially over face during discussion. Patient admits with abd pain, hypergycemia. Patient reports lives with roomates in independent home. He has steps in home. Patient with L BKA. He has crutches and knee scooter. He does not drive uses bus or assist with rides. Prev PCP Dr Jiménez from [facility]. He reports he had a PCP from [facility]. He reports took him off insulin and he is not returrning and does not have a PCP. [place] and hospital coverage. RALF kourtney Jacobs is assisting with medication assistance depending on medication at [place]. Patient reports no difficulty with ambulation. [facility] consult if patient can care for self at home. Therapy evals in process. Case mgt following.
[2020-05-26 11:10] VITALS: BP 119/61
[2020-05-26 16:20] VITALS: BP 134/77
--- NOTE | 2020-05-26 17:40 | NUR ---
ASSUMED CARE AT CHANGE OF SHIFT. ALERT X4, COMPLAINT WITH CARES, BS MANAGED WITH INSULIN. 1700 BS 156 GAVE [address] FULTON. REFUSED MIRALAX, NO BM TODAY PT AWARE STOOL OCCULT IS NEEDED. PT REFUSES BED ALARM DR FULTON NOTIFIED AND SAID TO TAKE PT OFF ALARM. PT UNDERSTANDS TO CALL FOR ASSISTANCE TO BATHROOM. USES URINAL BEDSIDE. US OF ABD COMPLETED. ABLE TO MAKE NEEDS KNOWN. CALL LIGHT AND PERSONAL ITEMS IN REACH.
[2020-05-26 19:46] VITALS: BP 139/73
--- NOTE | 2020-05-26 21:33 | NUR ---
PATIENT IS NONCOMPLIANT WITH HIGH FALL RISK STATUS. NURSE ATTEMPTED TO EDUCATE PATIENT WITH PATIENT BECOMING IRATE AND VERBALLY ABUSIVE.
[2020-05-27 03:18] VITALS: BP 123/63
[2020-05-27 04:07] LABS: GLYCOHEMOGLOBIN (HGB A1C) 14.4 % (4.8-5.6)
--- NOTE | 2020-05-27 04:36 | NUR ---
PATIENT IS PROGRESSING IN HIS CARE PLAN. VITAL SIGNS STABLE WITH PATIENT HAVING NO COMPLAINTS OF PAIN OR NAUSEA. PATIENT IS FULLY ORIENTED AND ABLE TO CALL FOR NEEDS. PATIENT DID HAVE BOWEL MOVEMENT OVER SHIFT WHICH NURSING WAS UNABLE TO COLLECT. PATIENT REMAINS NONCOMPLIANT WITH FALL PRECAUTIONS AND INSISTS ON HOPPING ON ONE LEG WHILE HOLDING THE WALL TO THE BATHROOM DESPITE THE OBVIOUS RISKS. PATIENT BECAME AGGRESSIVE WITH STAFF DUE TO MIX UP BETWEEN THIS NURSE AND CONTAINER COORDINATOR OVER WHICH TYPES OF FOODS PATIENT WAS ALLOWED DUE TO PRESCRIBED DIET, AND HAS BEEN NONCOMPLIANT IN THAT REGARD WELL.
[2020-05-27 05:57] LABS: HEMATOCRIT 37.8 % (42.0-52.0); HEMOGLOBIN 13.1 gm/dL (14.0-18.0); MCH 33.5 pg (26.0-34.0); MCHC 34.6 g/dL (28.0-37.0); RBC 3.89 mil/uL (4.50-6.00); RDW 12.2 % (10.5-14.5); WBC 8.3 thou/uL (4.0-11.0)
[2020-05-27 07:14] LABS: ALBUMIN 2.4 g/dL (3.4-5.0); CALCIUM 7.8 mg/dL (8.5-10.1); CREATININE 0.7 mg/dL (0.7-1.3); MAGNESIUM 1.8 mg/dL (1.8-2.4); POTASSIUM 3.7 mmol/L (3.5-5.1); TOTAL BILIRUBIN 0.3 mg/dL (0.2-1.0); TOTAL PROTEIN 6.2 g/dL (6.4-8.2)
[2020-05-27 07:45] VITALS: BP 115/57
[2020-05-27 11:37] VITALS: BP 120/56
[2020-05-27 13:37] VITALS: BP 124/58
--- NOTE | 2020-05-27 14:10 | NUR ---
PT IS A&OX4, VSS, HAS A LEFT AMPUTEE ON LOWER EXTREMITY, PT UP AD SHILPI WITHOUT ASSISTANCE. NURSE EDUCATED PT THAT HE COULD FALL. PT IS NON COMPLIANT WITH POC, PT REFUSED TYLENOL FOR PAIN. PT REPORTS HE IS LEAVING AMA AFTER HE RECEIVES HIS INSULIN RX. PT REFUSES FALL PRECAUTIONS. WILL CONTINUE TO MONITOR.
[2020-05-27 16:35] VITALS: BP 131/69
[2020-05-27 20:00] VITALS: BP 132/80
--- NOTE | 2020-05-28 02:01 | NUR ---
PT CARE ASSUMED WITH PT IN BED WATCHING TV.PT IS A FALL RISK BUT DOESNOT WANT THE FALL PRECAUTION IN PLACE.PT HAS A LT BKA WITH PROSTHESIS AND AMBULATES IN THE HALLWAY.PT IS ACCUCHECK ACHS.PT COOPERATIVE DURING SHIFT.WILL CONTINUE TO MONITOR POC
[2020-05-28 08:12] VITALS: BP 147/80
--- NOTE | 2020-05-28 11:56 | NUR ---
PT CARE ASSUMED AT 0700. A&Ox4. IV PATENT WITH NO REDNESS OR EDMEA, SALINE LOCKED. INSULINE CHANGES WERE MADE PER DR. BRAVO. PT IS NOT DC TODAY HIS BS WILL NEED TO BE CONTINUED TO BE MONITORED. PT UP INDEPENDENTLY IN THE ROOM. STOOL SAMPLE WAS CANCELLED. ACHS. Harmeet RUANO. RECORDS FROM [facility] RECEIVED TODAY AND ON THE CHART. CALL LIGHT IN REACH. WILL CONTINUE TO MONITOR.
[2020-05-28 20:40] LABS: URINE BILIRUBIN NEGATIVE (Negative); URINE BLOOD NEGATIVE (Negative); URINE CLARITY CLEAR; URINE COLOR YELLOW; URINE GLUCOSE-RANDOM* TRACE (Negative); URINE KETONES NEGATIVE (Negative); URINE LEUKOCYTES NEGATIVE (Negative); URINE NITRITE NEGATIVE (Negative); URINE PROTEIN (DIPSTICK) NEGATIVE (Negative); URINE SPECIFIC GRAVITY <= 1.005 (1.005-1.035); URINE UROBILINOGEN 0.2 E.U./dl (0.2-1.0)
[2020-05-28 21:20] VITALS: BP 131/77
[2020-05-29 04:45] VITALS: BP 124/64
--- NOTE | 2020-05-29 05:23 | NUR ---
ASSUMED PT'S CARE THIS PM SHIFT. PT ALERT AND ORIENTED. VSS ON RA. MEDS GIVEN PER EMAR. PT DID NOT QUALIFY FOR SS @ HS. PT CONTINUED TO SNACK MOST OF SHIFT. EDUCATION ON DIABETES PROVIDED. PT AMBULATES INDEPENDENTLY. HAS L/BKA. PROSTHESIS TO L/BKA. STEADY GAIT. CALL LIGHT WITHIN REACH. HOURLY ROUNDINGS MADE. WILL CONTINUE TO MONITOR.
[2020-05-29 07:40] VITALS: BP 129/84
[2020-05-29] MEDS ORDERED: SENNA-TIME S T1 EACH PO (11:15)
[2020-05-29] MEDS ORDERED: LANTUS100 UNIT/M SUBQ ×2 (11:15→11:17)
[2020-05-29] MEDS ORDERED: MIRALAX17 GM PO (11:15)
[2020-05-29] MEDS ORDERED: HUMALOG100 UNIT/1 SUBQ ×2 (11:15→11:17)
--- NOTE | 2020-05-29 15:13 | NUR ---
PT CARE ASSUMED AT 0700. A&Ox4. PT MEDICALLY STABLE TO DC AND IS AWAITING FOR CASE MANAGMENT TO ARRANGE FOR HIS INSULIN TO BE FILLED THROUGH OUTPATIENT PHARMACY ON SUNDAY. PT IS HOMELESS AND WILL GO TO HIS FRIENDS HOUSE AT [facility] AND WILL NEED TO BE PROVIDED A CAB VOUCHER. IV PATENT WITH NO REDNESS OR EDEMA, SALINE LOCKED. PT EDUCATED ON SELF ADMINISTRATION OF INSULINE AND PERFORMED ADMINISTRATION INDEPENDENTLY WITH NO FURTHER EDUCATION INIDICATED. ACHS. CALL LIGHT IN REACH. WILL CONTINUE TO MONITOR.
[2020-05-29 16:30] VITALS: BP 127/77
[2020-05-29 23:02] VITALS: BP 133/73
--- NOTE | 2020-05-30 03:12 | NUR ---
PT AMBULATING IN HALLWAYS INDEPENDENTLY AND IS TOLERATING WELL. DENIES PAIN. RESTING COMFORTABLY. NO NEEDS VOICED. CALL LIGHT WITHIN REACH. FREQUENT OBSERVATION.
[2020-05-30 07:57] VITALS: BP 101/63
--- NOTE | 2020-05-30 10:52 | NUR ---
PT CARE ASSUMED AT 0700. A&Ox4. PT UP INDEPENDENTLY IN THE ROOM AND HALLWAY. PT WOULD LIKE MORE EDUCATION ON HIS DIABETIC DIET. MD INFORMED. ORDER FOR CONSULT CONSTRUCTION RECRUITER ENTERED. R. KNEE FEELS SPONGY NO REDNESS, OR PAIN FULL TO THE TOUCH. MD AWARE AND NOT CONCERNED, WITH NO FURTHER ORDERS. PT IS GIVING HIMSELF INSULIN WITH NO FURTHER ADMINISTRATION INSTRUCTIONS NEEDED. WILL WORK ON DRAWING UP INSULIN AT LUNCH TIME. IV PATENT WITH NO REDNESS OR EDEMA, SALINE LOCKED. CALL LIGHT IN REACH. WILL CONTINUE TO MONITOR.
[2020-05-30 16:01] VITALS: BP 100/65
[2020-05-30 19:31] VITALS: BP 134/83
--- NOTE | 2020-05-31 03:42 | NUR ---
PT AMBULATING IN HALLWAYS INDEPENDENTLY AND IS TOLERATING WELL. DENIES PAIN. PLAN FOR DC 05/31. RESTING COMFORTABLY. NO NEEDS VOICED. CALL LIGHT WITHIN REACH. FREQUENT OBSERVATION.
[2020-05-31 09:05] VITALS: BP 104/72
--- NOTE | 2020-05-31 11:04 | NUR ---
cm f/u w/saul ARAMBULA tech re: pt medications payment. saul stated he will talk to the doctor to get the proper docs he needs "to get vouch" also saul will f/u pt re him wanting to [place] mother lives, possibly paying for a bus ticket. cm to cont to follow.
[2020-05-31 14:20] VITALS: BP 104/72
--- NOTE | 2020-05-31 15:26 | NUR ---
PT IS AOX4, VSS, NO C/O PAIN. PT RECEIVED DISCHARGE INSTRUCTIONS FROM CM AND NURSE ALSO WHEN OVER DC WITH PT. PT WILL METAL SPRAYER MACHINED PARTS INSULIN PRESCRIPTION FROM [facility], BUS TICKET HAS BEEN RECEIVED. PT IV WAS TAKEN OUT. PT VERBALIZED DISCHARGE INSTRUCTION. STAFF WILL TAKE TO PHARMACY BEFORE HE LEAVES THE HOSPITAL.
--- NOTE | 2020-05-31 16:41 | NUR ---
[facility] HAD ARRANGED FOR PT TO GET BUS FARE COVERED TO GO TO [place] TO BE WITH HIS MOTHER. PT'S MEDICATIONS WERE VOUCHERED BY DEPARTMENT. PT WAS GIVEN ENOUGH INSULIN SUPPLIES FOR TRAVEL. PT IS TO TAKE BUS THIS EVENING TO BUS STATION FOR 10:45 TRIP. PT HAS ALL RECOMMENDED DME. NO OTHER CM INTERVENTION INDICATED CASE CLOSED.
== END 2020-05-31 16:10 | disposition home or self-care (01) | DRG 638 ==
LOC: ER 11:37 → 2N 15:21 → EROBS 15:21 → 2N 19:55 → 4S 05-27 13:08
PROVIDERS: Emergency Medicine; Hospitalist; Internal Medicine; ADMIT Hospitalist; ATTEND Hospitalist
DX: E11.00 Type 2 diabetes mellitus with hyperosmolarity without nonketotic hyperglycemic-hyperosmolar coma (NKHHC) (principal); E87.1 Hypo-osmolality and hyponatremia; F12.90 Cannabis use, unspecified, uncomplicated; K59.00 Constipation, unspecified; E83.42 Hypomagnesemia; R74.0 Nonspecific elevation of levels of transaminase and lactic acid dehydrogenase [LDH]; K76.0 Fatty (change of) liver, not elsewhere classified; B19.20 Unspecified viral hepatitis C without hepatic coma; E11.65 Type 2 diabetes mellitus with hyperglycemia; F17.210 Nicotine dependence, cigarettes, uncomplicated; E86.0 Dehydration; Z90.49 Acquired absence of other specified parts of digestive tract; Z85.038 Personal history of other malignant neoplasm of large intestine; Z89.512 Acquired absence of left leg below knee; Z91.041 Radiographic dye allergy status; Z79.4 Long term (current) use of insulin; Z79.899 Other long term (current) drug therapy
CPT/HCPCS: 10081; 10100; 10102